=== PATIENT | female | born 1990 | race American Indian/Alaskan Native ===

== ENCOUNTER 2016-09-01 12:14 | Emergency (ER) | payer OTHER ==
[2016-09-01 12:29] VITALS: BP 112/73; PULSE 100; RESP 18; TEMP 98.3; O2SAT 100
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
== END 2016-09-01 13:40 | disposition home or self-care (01) ==
LOC: ED 12:14
DX: S16.1XXA Strain of muscle, fascia and tendon at neck level, initial encounter (principal); V49.9XXA Car occupant (driver) (passenger) injured in unspecified traffic accident, initial encounter; M79.605 Pain in left leg
CPT/HCPCS: 96372; 99283; J1885

== ENCOUNTER 2018-01-05 03:46 | Emergency (ER) | payer OTHER ==
[2018-01-05 03:53] VITALS: O2SAT 98
[2018-01-05] MEDS: Sodium Chloride 0.9% 1,000 ML IV STA (04:18)
[2018-01-05] MEDS ORDERED: Iohexol 240 (50 ml) ONE (04:22)
--- NOTE | 2018-01-05 04:23 | ED PDOC ---
Arrival/HPI - General Chief Complaint: Abdominal Pain Time Seen by Provider: 01/05/18 03:48 Historian: Patient - History of Present Illness Narrative History of Present Illness (Text): 01/05/18 04:14 27 year old female, with past medical history of sickle cell anemia, presents to the Emergency department accompanied by fiance complaining of intermittent suprapubic abdominal pain for past 2 weeks. Patient informs exacerbation of pain with intercourse, worsening for past few days prompting her to present to the Emergency department for medical evaluation. Patient informs associated nausea, dizziness and hematochezia. As per patient, her last bloody stool episode was last week and her LNMP was 3 weeks ago. Patient denies any pain medication prior to arrival stating she is allergic to morphine. Patient denies any fevers, chills, headache, chest pain, shortness of breath, cough, vomiting, diarrhea, back pain, neck pain, or any other complaints. Patient states history of cervical cancer in family. Patient denies smoking tobacco or drinking alcohol. 01/05/18 06:38 Time/Duration: > week Symptom Onset: Gradual Symptom Course: Unchanged Quality: Aching Activities at Onset: Light Context: Home Past Medical History - Provider Review Nursing Documentation Reviewed: Yes - Infectious Disease Hx of Infectious Diseases: None - Cardiac Hx Cardiac Disorders: No - Hematological/Oncological Hx Blood Transfusions: Yes Hx Sickle Cell Disease: Yes - Psychiatric Hx Substance Use: No - Anesthesia Hx Anesthesia: No Family/Social History - Physician Review Nursing Documentation Reviewed: Yes Family/Social History: No Known Family HX Smoking Status: Never Smoked Hx Alcohol Use: No Hx Substance Use: No Allergies/Home Meds Allergies/Adverse Reactions: Allergies morphine Allergy (Verified 01/05/18 03:52) RASH Home Medications: Home Meds Medication Instructions Recorded Confirmed Folic Acid [Folic Acid] 1 mg PO DAILY 09/01/16 01/05/18 Review of Systems - Physician Review All systems were reviewed & negative as marked: Yes - Review of Systems Constitutional: absent: Fevers Respiratory: absent: SOB, Cough Cardiovascular: ANGEL. absent: Chest Pain Gastrointestinal: Abdominal Pain, Nausea, Hematochezia. absent: Diarrhea, Vomiting Musculoskeletal: absent: Back Pain, Neck Pain Neurological: Dizziness. absent: Headache Physical Exam Vital Signs Reviewed: Yes Vital Signs Temp Pulse Resp BP Pulse Ox 01/05/18 07:50 99.2 F 82 18 110/68 98 01/05/18 07:19 99.7 F H 80 18 110/59 L 98 01/05/18 03:53 98.9 F 82 17 111/68 98 Temperature: Afebrile Blood Pressure: Normal Pulse: Regular Respiratory Rate: Normal Appearance: Positive for: Well-Appearing, Non-Toxic, Comfortable Pain Distress: None Mental Status: Positive for: Alert and Oriented X 3 - Systems Exam Head: Present: Atraumatic, Normocephalic Pupils: Present: PERRL Extroacular Muscles: Present: EOMI Conjunctiva: Present: Normal Neck: Present: Normal Range of Motion Respiratory/Chest: Present: Clear to Auscultation, Good Air Exchange. No: Respiratory Distress, Accessory Muscle Use Cardiovascular: Present: Regular Rate and Rhythm, Normal S1, S2. No: Murmurs Abdomen: Present: Tenderness (Diffused abdominal tenderness). No: Distention, Peritoneal Signs Rectal: Present: Other (Guiac negative ). No: Gross Blood Genitourinary/Pelvic Exam: Present: Normal External Genitalia, Other (Normal pelvic exam). No: Vaginal Bleeding Back: Present: Normal Inspection Upper Extremity: Present: Normal Inspection. No: Cyanosis, Edema Lower Extremity: Present: Normal Inspection. No: Edema Neurological: Present: GCS=15, CN II-XII Intact, Speech Normal Skin: Present: Warm, Dry, Normal Color. No: Rashes Psychiatric: Present: Alert, Oriented x 3, Normal Insight, Normal Concentration Medical Decision Making ED Course and Treatment: 01/05/18 04:26 Impression: 27 year old female presents to the Emergency department complaining of suprapubic pain. Given timing of suprapubic pain, ?ovarian cyst. No hx of STDS, and has sex only with fiance per pt. Given patient also has diffuse abdominal pain Will seek out imaging and labs. Plan: -- VBG -- CT of Abdomen/Pelvis -- Labs -- IV Fluids -- zofran -- Urinalysis -- Transvaginal US -- Reassess and disposition Prior Visits: Notes and results from previous visits were reviewed. Progress Notes: 01/05/18 06:35 labs largely unremarkable except anemic to 9.2, uknown baseline- although may be unremarkable in the setting of sickle cell anemia. Retic count elevated. No adenexal tenderness or CMT noted on exam. No vaginal d/c or cervical d/c noted on exam. Negative [place]. US IMPRESSION: 1. There is a 47 mm posterior uterine fibroid. 2. There is a 26 mm left ovarian cyst. Thank you for allowing us to participate in the care of your patient. Pending CT, will likely sign out to oncoming provider pending CT and re- assessment 01/05/18 06:39 - Lab Interpretations Lab Results: 01/05/18 04:16 01/05/18 04:16 Lab Results 01/05/18 04:57: pO2 40, VBG pH 7.34, VBG pCO2 49.0, VBG HCO3 26.4, VBG Total CO2 27.9, VBG O2 Sat (Calc) 70.8 H, VBG Base Excess 0.0, VBG Potassium 3.7, Glucose 107 H, Lactate 1.0, FiO2 21.0, Sodium 140.0, Chloride 109.0 H, Venous Blood Potassium 3.7 01/05/18 04:16: Sodium 142, Potassium 3.6, Chloride 106, Carbon Dioxide 23, Anion Gap 16, BUN 8, Creatinine 0.7, Est GFR ( Amer) > 60, Est GFR (Non- Af Amer) > 60, Random Glucose 112 H, Calcium 9.3, Total Bilirubin 0.8, AST 30, ALT 17, Alkaline Phosphatase 73, Total Protein 8.1, Albumin 4.2, Globulin 3.9, Albumin/Globulin Ratio 1.1, Lipase 38 01/05/18 04:16: WBC 8.8, RBC 3.56, Hgb 9.2 L, Hct 25.1 L, MCV 70.5 L, MCH 25.8, MCHC 36.7, RDW 17.6 H, Plt Count 238, MPV 9.2, Gran % 54.0, Lymph % (Auto) 40.3 H, [place] % (Auto) 4.3, Eos % (Auto) 1.3 L, Baso % (Auto) 0.1, Gran # 4.74, Lymph # (Auto) 3.5 H, [place] # (Auto) 0.4, Eos # (Auto) 0.1, Baso # (Auto) 0.01, Retic Count 3.59 H 01/05/18 03:57: Urine Color Yellow, Urine Appearance Clear, Urine pH 6.0, Ur Specific [place] 1.020, Urine Protein 30 H, Urine Glucose (UA) Negative, Urine Ketones Negative, Urine Blood Negative, Urine Nitrate Negative, Urine Bilirubin Negative, Urine Urobilinogen 0.2, Ur Leukocyte Esterase Negative, Urine RBC 0 - 2, Urine WBC 0 - 2, Ur Epithelial Cells 1 - 3, Urine Bacteria Neg, Urine Other Mucus - RAD Interpretation Radiology Orders: 01/05/18 04:16 TRANSVAGINAL [US] Stat 01/05/18 04:17 ABDOMEN & PELVIS [ABD PELVIS PO & IV CONTRAST] [CT] Stat - Medication Orders Current Medication Orders: Discontinued Medications Sodium Chloride (Sodium Chloride 0.9%) 1,000 mls @ 999 mls/hr IV .Q1H1M STA Stop: 01/05/18 05:16 Last Admin: 01/05/18 04:18 Dose: 999 mls/hr eMAR Start Stop Document 01/05/18 04:18 RG (Rec: 01/05/18 05:38 [id number] Intravenous Solution Start Date 01/05/18 Start Time 04:18 Ondansetron HCl (Zofran Inj) 4 mg IVP STAT STA Stop: 01/05/18 04:18 Last Admin: 01/05/18 04:50 Dose: 4 mg IVP Administration Document 01/05/18 04:50 RG (Rec: 01/05/18 05:38 [id number] Charges for Administration # of IVP Administrations 1 - Scribe Statement The provider has reviewed the documentation as recorded by the Scribe Erwin Engel. All medical record entries made by the Kathieibabdirahman were at my direction and personally dictated by me. I have reviewed the chart and agree that the record accurately reflects my personal performance of the history, physical exam, medical decision making, and the department course for this patient. I have also personally directed, reviewed, and agree with the discharge instructions and disposition. Disposition/Present on Arrival - Present on Arrival Any Indicators Present on Arrival: No History of DVT/PE: No History of Uncontrolled Diabetes: No Urinary Catheter: No History of Decub. Ulcer: No History Surgical Site Infection Following: None - Disposition Have Diagnosis and Disposition been Completed?: Yes Diagnosis: Ovarian cyst, Fibroids, Cholelithiasis Disposition: HOME/ ROUTINE Disposition Time: 07:00 Condition: STABLE Discharge Instructions (ExitCare): Uterine Fibroids (DC), Ovarian Cyst Removal (DC), Myomectomy (DC) Referrals: [facility] at [facility] [place] [place] [Outside] - Follow up with primary Nelia Frausto MD [Staff Provider] - Follow up with primary Forms: [facility] (Estonian), WORK NOTE
[2018-01-05 05:00] LABS: ALB/GLOB RATIO 1.1 (1.1-1.8); ALBUMIN 4.2 g/dL (3.0-4.8); ALT/SGPT 17 U/L (7-56); AST/SGOT 30 U/L (14-36); BASO # 0.01 K/mm3 (0.0-2.0); BASO % 0.1 % (0.0-3.0); BLOOD UREA NITROGEN 8 mg/dL (7-21); CALCIUM 9.3 mg/dL (8.4-10.5); EOS # 0.1 (0.0-0.7); EOS % 1.3 % (1.5-5.0); GFR NON-AFRICAN AMERICAN > 60; GRAN # 4.74 (1.4-6.5); HEMOGLOBIN 9.2 g/dL (12.0-16.0); LIPASE 38 U/L (23-300); LYMPH # 3.5 (1.2-3.4); LYMPH % 40.3 % (22.0-35.0); MEAN CELL VOLUME 70.5 fl (80.0-105.0); MEAN CORPUSCULAR HEMOGLOBIN 25.8 pg (25.0-35.0); MEAN CORPUSCULAR HGB CONC 36.7 g/dl (31.0-37.0); MEAN PLATELET VOLUME 9.2 fl (7.0-11.0); MONO # 0.4 (0.1-0.6); MONO % 4.3 % (1.0-6.0); PLATELET COUNT 238 10^3/uL (120.0-450.0); RBC 3.56 10^6/uL (3.5-6.1); RED CELL DISTRIBUTION WIDTH 17.6 % (11.5-14.5); WHITE BLOOD COUNT 8.8 10^3/ul (4.5-11.0)
[2018-01-05 05:24] LABS: VENOUS BLOOD GAS PO2 40 mm/Hg (30-55); VENOUS BLOOD PH 7.34 (7.32-7.43)
[2018-01-05 05:44] LABS: URINE BILIRUBIN NEGATIVE (NEGATIVE); URINE BLOOD NEGATIVE (NEGATIVE); URINE GLUCOSE (UA) NEGATIVE (NEGATIVE); URINE LEUKOCYTE ESTERASE NEGATIVE Leu/uL (NEGATIVE); URINE PROTEIN 30 mg/dL (<30 mg/dL); URINE UROBILINOGEN 0.2 E.U./dL (<1 E.U./dL)
[2018-01-05 05:45] LABS: URINE APPEARANCE CLEAR (CLEAR); URINE COLOR YELLOW (YELLOW)
[2018-01-05 05:55] LABS: URINE BACTERIA NEG (NEG); URINE RBC 0 - 2 /hpf (0-2); URINE WBC 0 - 2 /hpf (0-6)
[2018-01-05] MEDS ORDERED: Iohexol 350 MG/100 ML VIAL ONE (06:35)
--- NOTE | 2018-01-05 07:14 | ED PDOC ---
Physical Exam Vital Signs Reviewed: Yes Vital Signs Temp Pulse Resp BP Pulse Ox 01/05/18 07:50 99.2 F 82 18 110/68 98 01/05/18 07:19 99.7 F H 80 18 110/59 L 98 01/05/18 03:53 98.9 F 82 17 111/68 98 Temperature: Afebrile Blood Pressure: Normal Pulse: Regular Respiratory Rate: Normal Appearance: Positive for: Well-Appearing, Non-Toxic, Comfortable Pain Distress: None Mental Status: Positive for: Alert and Oriented X 3 Medical Decision Making ED Course and Treatment: 01/05/18 07:13: Case endorsed to me by Dr. Octavia Martinez from overnight. Pending Abdomen/ Pelvis CT results, reassessment, and disposition. CT Abdomen and Pelvis With Intravenous Contrast EXAM DATE/TIME: 01/05/2018 4:17 AM Dictated and Authenticated by: Carly Gee MD 01/05/2018 7:06 AM Eastern Time ([place] & [place]) IMPRESSION: No acute findings. Cholelithiasis. Left ovarian cyst. 01/05/18 07:36 On re-evaluation the patient feels better and is in no acute distress. I have explained the findings to the patient, which she acknowledges and understands. Patient given the opportunity to ask questions & all questions were answered. Patient is stable for discharge. Patient was instructed to follow up with physician/clinic in 1-2 days or return if symptoms persist/worsen or new concerning symptoms arise. - Lab Interpretations Lab Results: 01/05/18 04:16 01/05/18 04:16 Lab Results 01/05/18 04:57: pO2 40, VBG pH 7.34, VBG pCO2 49.0, VBG HCO3 26.4, VBG Total CO2 27.9, VBG O2 Sat (Calc) 70.8 H, VBG Base Excess 0.0, VBG Potassium 3.7, Glucose 107 H, Lactate 1.0, FiO2 21.0, Sodium 140.0, Chloride 109.0 H, Venous Blood Potassium 3.7 01/05/18 04:16: Sodium 142, Potassium 3.6, Chloride 106, Carbon Dioxide 23, Anion Gap 16, BUN 8, Creatinine 0.7, Est GFR ( Amer) > 60, Est GFR (Non- Af Amer) > 60, Random Glucose 112 H, Calcium 9.3, Total Bilirubin 0.8, AST 30, ALT 17, Alkaline Phosphatase 73, Total Protein 8.1, Albumin 4.2, Globulin 3.9, Albumin/Globulin Ratio 1.1, Lipase 38 01/05/18 04:16: WBC 8.8, RBC 3.56, Hgb 9.2 L, Hct 25.1 L, MCV 70.5 L, MCH 25.8, MCHC 36.7, RDW 17.6 H, Plt Count 238, MPV 9.2, Gran % 54.0, Lymph % (Auto) 40.3 H, [place] % (Auto) 4.3, Eos % (Auto) 1.3 L, Baso % (Auto) 0.1, Gran # 4.74, Lymph # (Auto) 3.5 H, [place] # (Auto) 0.4, Eos # (Auto) 0.1, Baso # (Auto) 0.01, Retic Count 3.59 H 01/05/18 03:57: Urine Color Yellow, Urine Appearance Clear, Urine pH 6.0, Ur Specific [place] 1.020, Urine Protein 30 H, Urine Glucose (UA) Negative, Urine Ketones Negative, Urine Blood Negative, Urine Nitrate Negative, Urine Bilirubin Negative, Urine Urobilinogen 0.2, Ur Leukocyte Esterase Negative, Urine RBC 0 - 2, Urine WBC 0 - 2, Ur Epithelial Cells 1 - 3, Urine Bacteria Neg, Urine Other Mucus - RAD Interpretation Radiology Orders: 01/05/18 04:16 TRANSVAGINAL [US] Stat 01/05/18 04:17 ABDOMEN & PELVIS [ABD PELVIS PO & IV CONTRAST] [CT] Stat - Medication Orders Current Medication Orders: Discontinued Medications Sodium Chloride (Sodium Chloride 0.9%) 1,000 mls @ 999 mls/hr IV .Q1H1M STA Stop: 01/05/18 05:16 Last Admin: 01/05/18 04:18 Dose: 999 mls/hr eMAR Start Stop Document 01/05/18 04:18 SOFIE (Rec: 01/05/18 05:38 [place] [id number] Intravenous Solution Start Date 01/05/18 Start Time 04:18 Ondansetron HCl (Zofran Inj) 4 mg IVP STAT STA Stop: 01/05/18 04:18 Last Admin: 01/05/18 04:50 Dose: 4 mg IVP Administration Document 01/05/18 04:50 SOFIE (Rec: 01/05/18 05:38 [place] [id number] Charges for Administration # of IVP Administrations 1 - Scribe Statement The provider has reviewed the documentation as recorded by the Scribe Linda Mckinney Provider Scribe Attestation: All medical record entries made by the Scribe were at my direction and personally dictated by me. I have reviewed the chart and agree that the record accurately reflects my personal performance of the history, physical exam, medical decision making, and the department course for this patient. I have also personally directed, reviewed, and agree with the discharge instructions and disposition. Disposition/Present on Arrival - Present on Arrival Any Indicators Present on Arrival: No History of DVT/PE: No History of Uncontrolled Diabetes: No Urinary Catheter: No History of Decub. Ulcer: No History Surgical Site Infection Following: None - Disposition Have Diagnosis and Disposition been Completed?: Yes Diagnosis: Ovarian cyst, Fibroids, Cholelithiasis Disposition: HOME/ ROUTINE Disposition Time: 07:25 Patient Plan: Discharge Condition: STABLE Discharge Instructions (ExitCare): Uterine Fibroids (DC), Ovarian Cyst Removal (DC), Myomectomy (DC) Referrals: Nelia Frausto MD [Staff Provider] - Follow up with primary [facility] - Follow up with primary Forms: [facility] (Malagasy), WORK NOTE
[2018-01-05 07:20] VITALS: RESP 18
[2018-01-05 07:51] VITALS: BP 110/68; PULSE 82; TEMP 99.2
--- NOTE | 2018-01-05 08:03 | CT ---
Date of service: 01/05/2018 PROCEDURE: CT Abdomen and Pelvis with contrast HISTORY: abd pain COMPARISON: None. TECHNIQUE: Contrast dose: Radiation dose: Total exam DLP = 568 mGy-cm. This CT exam was performed using one or more of the following dose reduction techniques: Automated exposure control, adjustment of the mA and/or kV according to patient size, and/or use of iterative reconstruction technique. FINDINGS: LOWER THORAX: Unremarkable. LIVER: Unremarkable. No gross lesion or ductal dilatation. GALLBLADDER AND BILE DUCTS: Cholelithiasis. PANCREAS: Unremarkable. No gross lesion or ductal dilatation. SPLEEN: Unremarkable. ADRENALS: Unremarkable. No mass. KIDNEYS AND URETERS: Unremarkable. No hydronephrosis. No solid mass. VASCULATURE: Unremarkable. No aortic aneurysm. BOWEL: Unremarkable. No obstruction. No gross mural thickening. APPENDIX: Normal appendix. PERITONEUM: Unremarkable. No free fluid. No free air. LYMPH NODES: Unremarkable. No enlarged lymph nodes. BLADDER: Unremarkable. REPRODUCTIVE: 2.8 centimeter left ovarian cyst. Leiomyomatous uterus BONES: No acute fracture. OTHER FINDINGS: None. IMPRESSION: 2.8 centimeter left ovarian cyst. Leiomyomatous uterus cholelithiasis.
--- NOTE | 2018-01-05 08:07 | US ---
Date of service: 01/05/2018 PROCEDURE: HISTORY: suprapubic pain COMPARISON: TECHNIQUE: FINDINGS: The uterus is normal in size with a 4.7 centimeter posterior uterine uterus is retroverted. The right ovary is unremarkable greater left ovarian cyst. There is no free fluid the pelvis. IMPRESSION: As above.
== END 2018-01-05 07:50 | disposition home or self-care (01) ==
LOC: ED 03:46
DX: D25.9 Leiomyoma of uterus, unspecified (principal); K80.20 Calculus of gallbladder without cholecystitis without obstruction; N83.202 Unspecified ovarian cyst, left side
CPT/HCPCS: 74177; 76830; 80053; 81001; 82803; 83690; 85025; 85044; 96374; 99284; J2405; J7030; Q9966; Q9967

== ENCOUNTER 2018-09-26 23:34 | Emergency (ER) | payer OTHER ==
[2018-09-27] MEDS ORDERED: DiphenhydrAMINE 50 mg/ml Inj IVP STA (00:15)
[2018-09-27] MEDS ORDERED: Sodium Chloride 0.9% 1,000 ML IV STA (00:15)
[2018-09-27] MEDS ORDERED: Morphine 4 mg/ml ISec IVP STA (00:15)
[2018-09-27 00:16] VITALS: TEMP 98.5
--- NOTE | 2018-09-27 00:22 | ED PDOC ---
Arrival/HPI - General Chief Complaint: Lower Extremity Problem/Injury Time Seen by Provider: 09/26/18 23:42 Historian: Patient - History of Present Illness Narrative History of Present Illness (Text): 09/27/18 00:21 28-year-old female with past medical history of sickle cell anemia presents to the immediate emergency room complaining of left leg pain x 4 hrs with possible sickle cell crisis. Patient states that she has a sickle cell crisis she typically has pain in either her legs or her arms. Otherwise she reports no trauma, injury, fever, chills, URI, abdominal pain, nausea, vomiting, chest pain, shortness of breath, neck pain, back pain or any other joint pain or extremity pain. Has no other complaints. Past Medical History - Infectious Disease Hx of Infectious Diseases: None - Cardiac Hx Cardiac Disorders: No - Hematological/Oncological Hx Blood Disorders: Yes Hx Blood Transfusions: Yes Hx Sickle Cell Disease: Yes - Psychiatric Hx Substance Use: No - Anesthesia Hx Anesthesia: No Family/Social History Family/Social History: Hypertension Smoking Status: Never Smoked Hx Alcohol Use: No Hx Substance Use: No Allergies/Home Meds Allergies/Adverse Reactions: Allergies morphine Allergy (Verified 09/27/18 00:08) RASH acetaminophen [From Percocet] Adverse Reaction (Verified 09/27/18 00:16) VOMITING oxycodone [From Percocet] Adverse Reaction (Verified 09/27/18 00:16) VOMITING Home Medications: Home Meds Medication Instructions Recorded Confirmed Folic Acid 1 mg PO DAILY 09/01/16 01/05/18 Review of Systems - Review of Systems Constitutional: absent: Fatigue, Fevers ENT: absent: Sore Throat, Rhinorrhea, Sinus Congestion Respiratory: absent: SOB, Cough Cardiovascular: absent: Chest Pain, Palpitations, Edema Gastrointestinal: absent: Abdominal Pain, Nausea, Vomiting Genitourinary Female: absent: Dysuria, Frequency, Hematuria Musculoskeletal: Arthralgias, Myalgias. absent: Back Pain, Neck Pain, Joint Swelling Skin: absent: Rash, Pruritis, Skin Lesions Neurological: absent: Headache, Dizziness Physical Exam Vital Signs Temp Pulse Resp BP Pulse Ox 09/27/18 00:10 98.5 F 99 H 18 145/91 H 95 Temperature: Afebrile Blood Pressure: Normal Pulse: Regular Respiratory Rate: Normal Appearance: Positive for: Well-Appearing, Non-Toxic, Comfortable Pain Distress: Moderate Mental Status: Positive for: Alert and Oriented X 3 - Systems Exam Head: Present: Atraumatic, Normocephalic Pupils: Present: PERRL Extroacular Muscles: Present: EOMI Conjunctiva: Present: Normal Mouth: Present: Moist Mucous Membranes Neck: Present: Normal Range of Motion Respiratory/Chest: Present: Clear to Auscultation, Good Air Exchange. No: Respiratory Distress, Accessory Muscle Use Cardiovascular: Present: Regular Rate and Rhythm, Normal S1, S2. No: Murmurs Abdomen: No: Tenderness, Distention, Peritoneal Signs Back: Present: Normal Inspection Upper Extremity: Present: Normal Inspection. No: Cyanosis, Edema Lower Extremity: Present: Normal Inspection, NORMAL PULSES, Tenderness (+mild tenderness to the L leg). No: Edema, Swelling Neurological: Present: GCS=15, CN II-XII Intact, Speech Normal Skin: Present: Warm, Dry, Normal Color. No: Rashes Psychiatric: Present: Alert, Oriented x 3, Normal Insight, Normal Concentration Medical Decision Making ED Course and Treatment: 09/27/18 00:24 Plan : - IV - NS bolus IV - Morphine IV - Zofran IV - Benadryl IV - [place] [facility] [place]:21 Labs reviewed : hgb 9/hct 25, retic count 4. On reevaluation, patient reports improvement of symptoms, denies any CP, back pain or SOB. On exam, patient remains awake alert and oriented 3 in no acute distress. Lab results discussed with the patient. Advised to follow up with primary care physician or referral provided in 1-2 days without fail. Return to the emergency room at any time for any new or worsening symptoms. Patient states she fully agrees with and understands discharge instructions. States that she agrees with the plan and disposition. Verbalized and repeated discharge instructions and plan. I have given the patient opportunity to ask any additional questions. - Medication Orders Current Medication Orders: Diphenhydramine HCl (Benadryl) 25 mg IVP STAT STA Stop: 09/27/18 00:16 Sodium Chloride (Sodium Chloride 0.9%) 1,000 mls @ 1,000 mls/hr IV .Q1H STA Stop: 09/27/18 01:14 Morphine Sulfate (Morphine) 4 mg IVP STAT STA Stop: 09/27/18 00:16 Ondansetron HCl (Zofran Inj) 4 mg IVP STAT STA Stop: 09/27/18 00:16 - PA / LABEL CODER / Resident Statement MD/DO has reviewed & agrees with the documentation as recorded. Disposition/Present on Arrival - Present on Arrival Any Indicators Present on Arrival: No History of DVT/PE: No History of Uncontrolled Diabetes: No Urinary Catheter: No History of Decub. Ulcer: No History Surgical Site Infection Following: None - Disposition Have Diagnosis and Disposition been Completed?: Yes Diagnosis: Sickle cell crisis Disposition: HOME/ ROUTINE Disposition Time: 02:00 Patient Plan: Discharge Condition: STABLE Discharge Instructions (ExitCare): Sickle Cell Disease Additional Instructions: Thank you for letting us take care of you today. You were treated for sickle cell crisis. The emergency medical care you received today was directed at your acute symptoms. Return to the Emergency Department if your symptoms worsen, do not improve, or if you have any other problems. Please contact your doctor in 2 days for re-evaluation and follow up / or call one of the physicians/clinics you have been referred to that are listed on the Patient Visit Information form that is included in your discharge packet. Bring any paperwork you were given at discharge with you along with any medications you are taking to your follow up visit. Our treatment cannot replace ongoing medical care by a primary care provider (PCP) outside of the emergency department. Thank you for allowing the [facility] team to be part of your care today. [place] [facility] [place] [facility] [place] - Follow up with primary Forms: [employer] ([place]), WORK NOTE, SCHOOL NOTE
[2018-09-27 00:53] LABS: BASO # 0.02 K/mm3 (0.0-2.0); BASO % 0.2 % (0.0-3.0); EOS # 0.1 (0.0-0.7); EOS % 0.7 % (1.5-5.0); LYMPH # 2.8 (1.2-3.4); LYMPH % 27.7 % (22.0-35.0); MEAN CELL VOLUME 72.9 fl (80.0-105.0); MEAN CORPUSCULAR HEMOGLOBIN 25.6 pg (25.0-35.0); MEAN CORPUSCULAR HGB CONC 35.2 g/dl (31.0-37.0); MEAN PLATELET VOLUME 8.8 fl (7.0-11.0); MONO # 0.4 (0.1-0.6); MONO % 3.4 % (1.0-6.0); RBC 3.51 10^6/uL (3.5-6.1); RED CELL DISTRIBUTION WIDTH 18.2 % (11.5-14.5); WHITE BLOOD COUNT 10.2 10^3/uL (4.5-11.0)
[2018-09-27 00:59] LABS: ALB/GLOB RATIO 1.1 (1.1-1.8); ALBUMIN 4.1 g/dL (3.0-4.8); ALT/SGPT 20 U/L (7-56); AST/SGOT 30 U/L (14-36); BLOOD UREA NITROGEN 11 mg/dL (7-21); CALCIUM 9.1 mg/dL (8.4-10.5); GFR NON-AFRICAN AMERICAN > 60
[2018-09-27 03:31] VITALS: BP 112/57; PULSE 85; RESP 17; O2SAT 97
== END 2018-09-27 03:32 | disposition home or self-care (01) ==
LOC: ED 23:34
DX: D57.00 Hb-SS disease with crisis, unspecified (principal)
CPT/HCPCS: 80053; 81025; 85025; 85044; 96361; 96374; 96375; 99285; J1200; J1885; J2270; J2405; J7030